=== PATIENT | male | born 1960 | race Caucasian/White ===

== ENCOUNTER → 2024-02-04 | Outpatient (CLI) | payer OTHER ==
[2024-02-04 14:37] VITALS: BP 135/85; PULSE 84; RESP 16; TEMP 98.2
--- NOTE | 2024-02-04 15:10 | P.SLEEP ---
History of Present Illness DATE: 02/04/2024 CONSULTATION/NEW PATIENT EVALUATION HISTORY OF PRESENT ILLNESS/SLEEP-WAKE EVALUATION: 63-year-old gentleman had b een evaluated in the sleep center for possible obstructive sleep apnea hypopnea syndrome. SLEEP SCHEDULE: Usually sleep schedule from 9:30 PM to 6 AM on weekdays and to 7:30 AM on weekend. FALLING ASLEEP: No problems with falling asleep. DURING SLEEP: Patient has loud snoring and witnessed episodes of stop breathing during the sleep. Patient wakes up from sleep 4 times with nocturia. No histo ry of hypnogogical hallucinations, sleep paralysis, or cataplexy. DURING THE DAY/WAKE STATE: In the morning patient wake up tired, has difficulties to pay attention, falling asleep during the day.. [place] sleepiness scale is 8. Patient may take nap at 4:30 PM. PAST MEDICAL HISTORY: Esophageal structure. PAST SURGICAL HISTORY: Balloon procedure for esophageal structure. MEDICATIONS: Omeprazole. SOCIAL HISTORY: Please see belowl. FAMILY HISTORY: Please see below. REVIEW OF SYSTEMS: Snoring, multiple awakenings from sleep. No fevers. No double vision. No recent chest pain. No shortness of breath. No abdominal pain. No bleeding episodes. No blood in urine. No seizure episodes. PHYSICAL EXAMINATION: GENERAL: A pleasant patient without any distress. VITAL SIGNS: Please see below, weight 225 pounds, BMI 32.2. HEENT: PERRLA, EOMI. Evaluation of oropharynx showed tongue protrudes midline, low position of soft palate Mallampati 34. NECK: Supple. No JVD. Thyroid is not palpable. 17 inches in circumference. LUNGS: Clear to percussion and to auscultation. Good air exchange. No wheezing or rhonchi. HEART: S1, S2 regular. No murmurs, gallops or rubs. ABDOMEN: Soft and nontender. Bowel sounds are present. No organomegaly appreciated. EXTREMITIES: No clubbing or cyanosis. CLERICAL AIDE TEACHER: Awake, alert, and oriented x3. Cranial nerves 2 to 7 intact. There is no fasciculation or atrophy noted. No focal deficits observed. ASSESSMENT: 1. Loud snoring, witnessed episodes of stop breathing during the sleep, multiple awakenings from sleep, extremely low position of soft palate Mallampati 4, wide neck 17 inches in circumference. Obstructive sleep apnea hypopnea syndrome. 2. Mild obesity, BMI 32.2. 3. Acid reflux. 4. History of esophageal structure, status post balloon procedure. PLAN: 1. Polysomnography for evaluation of patient's breathing during sleep. 2. Following plan after reading sleep study 3. Preferable position during sleep on the side. 4. No driving if patient feels any sleepiness. Patient is aware of civil and criminal liability for unsafe driving. 5. Sleep hygiene with regular sleep time for at least 7.5-8 hours. 6. Watching weight. Thank you very much for referring this patient for consultation. Sincerely, Tacos Duran MD, PhD, FAASM. Diplomat of [place] [employer], Sleep Medicine Board by [place] [employer] [place] [employer] Systems Coordinator of [facility] [place] Past Medical History Additional Past Medical History / Comment(s): ESOPHAGEAL STRICTURE History of Any Multi-Drug Resistant Organisms: None Reported Additional Past Surgical History / Comment(s): BALLOONED ESOPHAGUS Past Anesthesia/Blood Transfusion Reactions: No Reported Reaction Past Psychological History: No Psychological Hx Reported Smoking Status: Never smoker Past Alcohol Use History: None Reported Past Drug Use History: None Reported Medications and Allergies Home Medications Medication Instructions Recorded Confirmed Type Omeprazole 20 mg PO DAILY 02/04/24 02/04/24 History Physical Exam Vitals: Vital Signs Temp Pulse Resp BP Pulse Ox 02/04/24 14:33 98.2 F 84 16 135/85 96 Intake and Output 02/04/24 02/04/24 02/04/24 06:59 14:59 22:59 Other: Weight 102.058 kg Sleep Note - Sleep Data ESS Total: 8 - Sleep Note Sleep Note: Temperature: 98.2 F Pulse Rate: 84 Respiratory Rate: 16 Blood Pressure: 135/85 SpO2: 96 Height: 5 ft 10 in Weight: 102.058 kg BMI: Neck Circumference: 17
== END ==
LOC: 3 N SLEEP 13:50
PROVIDERS: ATTEND Internal Medicine
DX: G47.33 Obstructive sleep apnea (adult) (pediatric) (principal); E66.9 Obesity, unspecified; K21.9 Gastro-esophageal reflux disease without esophagitis; Z68.32 Body mass index [BMI] 32.0-32.9, adult; Z87.09 Personal history of other diseases of the respiratory system
CPT/HCPCS: 99202

== ENCOUNTER 2024-03-09 20:06 | Outpatient (CLI) | payer OTHER ==
--- NOTE | 2024-04-01 15:54 | SLS ---
SLEEP STUDY PROCEDURE: Polysomnogram. DESCRIPTION OF PROCEDURE: The standard montage for clinical polysomnography included an electroencephalogram, electroculogram, lead II cardiography have been provided. The respiratory battery consisted of measurements of nasal/buccal airflow, pressure transducer measurements from nose, thoracic, and abdominal effort. Video monitoring has been done to check for any parasomnia events. Nocturnal oxyhemoglobin saturation was obtained by finger oximetry. RESULTS: During diagnostic sleep study sleep efficiency was decreased to 82.7%. Latency to sleep onset was normal 12.5 minutes. Sleep architecture showed slight increasing stage N1 to 10.1%, absence of delta sleep, 0% and normal amount of REM sleep 21.3%. Heart rate in the range between 68 and 81, every 74. EMG showed 2.3 periodic limb movements per hour. Respiratory channel showed 182 obstructive apneas, 0 mixed apneas, 3 central apneas and 46 hypopneas, with total apnea-hypopnea index 40.4 with oxygen desaturation to 81%. IMPRESSION: 1. Severe obstructive sleep apnea-hypopnea syndrome. 2. No significant periodic limb movements have been documented. PLAN: 1. CPAP titration for correction of respiratory abnormalities during sleep. 2. Watching and losing weight. 3. Sleep hygiene with regular time in bed for at least 8 hours. 4. No driving if feeling sleepiness. Thank you very much for allowing me to participate in the management of your patient. Sincerely, Tacos Duran MD, PhD, FAASM Diplomat of [place] [employer] Sleep Medicine Board of [place] [employer] Office Support Associate of [facility] [place]. MMODL / IJN: [id number] / JAS
== END 2024-03-10 05:17 | disposition home or self-care (01) ==
LOC: 3 N SLEEP 20:06
PROVIDERS: ATTEND Internal Medicine
DX: G47.33 Obstructive sleep apnea (adult) (pediatric) (principal)
CPT/HCPCS: 95810

== ENCOUNTER 2024-04-03 19:50 | Outpatient (CLI) | payer OTHER ==
--- NOTE | 2024-04-06 16:20 | P.PCN ---
Description of Procedure: CLINICAL: Titration with positive air pressure has been done for correction of respiratory abnormalities during sleep. DESCRIPTION OF PROCEDURE: The standard montage for clinical polysomnography included the electroencephalogram, the electrocardiogram, the mentalis surface electromyography and Lead II cardiography. The respiratory battery consisted of measurements of nasal /buccal air flow, pressure transducer measurements from the nose, thoracic and /or abdominal effort and intercostal surface electromyography. Video monitoring has been done to check for any parasomnia events. Nocturnal oxyhemoglobin saturations were obtained by finger oximetry. Step-mae titration with positive airway pressure was utilized to control respiratory events. Raw data of sleep recording has been reviewed and is adequate. RESULTS: Sleep efficiency was significantly decreased to 75.9%. Latency to sleep onset was prolonged to 46.5 minutes.]. Sleep architecture showed stage N1 was normal 7.9%, Delta sleep was extremely short 0.1%, REM sleep was increased to 32.3%. Heart rate was minimum 58 BPM, maximum 91 BPM, average 68 BPM by computer c alculation. EMG showed 19.5 periodic limb movements per hour. PAP titration have been done with CPAP up to the pressure 11 cm H2O. The best results were at the pressure 11 cm H2O. Apnea hypopnea index reduced to 1.6. IMPRESSION: 1. Obstructive sleep apnea hypopnea syndrome on controle with PAP treatment. 2. Periodic limb movements have been documented. Please see other impressions from consultation. PLAN: 1. The patient will have treatment with positive air pressure equipment with the level of pressure AutoPap 5-11 cm H2O and should use it every night for the whole night. 2. Watching and losing weight. 3. Sleep hygiene with regular time in bed for at least 8 hours. 4. No driving if feeling any sleepiness. 5. I will see the patient for follow up visit to explain the results of the test, recommendations, check compliance with treatment and make any necessary adjustment related to mask fitting, pressure and humidification. 6. Please check iron profile including ferritin level. Low level of iron may increase risk for periodic limb movements Thank you very much for allowing me to participate in the management of your patient. Sincerely, Tacos Duran MD, PhD, FAASM Diplomat of [employer] [employer] Sleep Medicine Board of [place] [employer] Assurance Engineer of [facility] [place] cc: Lc Ball MD
== END 2024-04-04 05:55 | disposition home or self-care (01) ==
LOC: 3 N SLEEP 19:50
PROVIDERS: ATTEND Internal Medicine
CPT/HCPCS: 95811

== ENCOUNTER 2025-02-11 19:58 | Inpatient (IN) | payer OTHER ==
--- NOTE | 2025-02-11 20:25 | ED ---
Fever HPI - General Chief Complaint: Upper Respiratory Infection Stated Complaint: Fever, Bodyaches Time Seen by Provider: 02/11/25 20:07 Source: patient, RN notes reviewed, old records reviewed Mode of arrival: ambulatory Limitations: no limitations - History of Present Illness Initial Comments: This is a 64-year-old male to the ER for evaluation patient is presenting with concern for worsening infection 5 to 6 days of antibiotics and fever control and 5 to 6 days of fever shortness of breath cough congestion still feeling unwell. Patient presents to the ER after revisit to urgent care urged him to come to the hospital for worsening pneumonia and failure of outpatient treatment. 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 Complaint: fever, malaise, other (Cough congestion) -: days(s) Temperature Source: subjective, oral Context: sick contacts, recent antibiotic use Associated Symptoms: myalgias, nasal congestion, cough, shortness of breath, nausea Treatments Prior to Arrival: Acetaminophen, Ibuprofen - Related Data Home Medications Medication Instructions Recorded Confirmed Acetaminophen-Codeine 300-30mg 1 - 2 tab PO Q4-6H PRN 02/12/25 02/12/25 [Tylenol w/codeine #3] Cholecalciferol (Vitamin D3) 50 mcg PO DAILY 02/12/25 02/12/25 [Vitamin D3 (50 Mcg = 2000 Iu) Chew Tab] Omeprazole 40 mg PO DAILY 02/12/25 02/12/25 Previous Rx's Medication Instructions Recorded cefuroxime axetiL [Ceftin] 500 mg PO BID 5 Days #20 tab 02/13/25 Allergies Allergy/AdvReac Type Severity Reaction Status Date / Time amoxicillin AdvReac Vomiting Verified 02/12/25 10:03 Review of Systems ROS Statement: Those systems with pertinent positive or pertinent negative responses have been documented in the HPI. ROS Other: All systems not noted in ROS Statement are negative. Past Medical History Past Medical History: Sleep Apnea/CPAP/BIPAP Additional Past Medical History / Comment(s): ESOPHAGEAL STRICTURE History of Any Multi-Drug Resistant Organisms: None Reported Additional Past Surgical History / Comment(s): BALLOONED ESOPHAGUS Past Anesthesia/Blood Transfusion Reactions: No Reported Reaction Past Psychological History: No Psychological Hx Reported Smoking Status: Never smoker Past Alcohol Use History: None Reported Past Drug Use History: None Reported General Exam Limitations: no limitations General appearance: alert, in no apparent distress Head exam: Present: atraumatic, normocephalic, normal inspection Eye exam: Present: normal appearance, PERRL, EOMI. Absent: scleral icterus, conjunctival injection, periorbital swelling ENT exam: Present: normal exam, mucous membranes moist Neck exam: Present: normal inspection. Absent: tenderness, meningismus, lymphadenopathy Respiratory exam: Present: normal lung sounds bilaterally. Absent: respiratory distress, wheezes, rales, rhonchi, stridor Cardiovascular Exam: Present: regular rate, normal rhythm, normal heart sounds. Absent: systolic murmur, diastolic murmur, rubs, gallop, clicks GI/Abdominal exam: Present: soft, normal bowel sounds. Absent: distended, tenderness, guarding, rebound, rigid Extremities exam: Present: normal inspection, full ROM, normal capillary refill. Absent: tenderness, pedal edema, joint swelling, calf tenderness Back exam: Present: normal inspection Neurological exam: Present: alert, oriented X3, CN II-XII intact Psychiatric exam: Present: normal affect, normal mood Skin exam: Present: warm, dry, intact, normal color. Absent: rash Course Vital Signs 02/11/25 02/11/25 20:01 23:51 Temperature 99 F 97.6 F Pulse Rate 89 68 Respiratory 18 20 Rate Blood Pressure 145/85 120/83 O2 Sat by Pulse 95 96 Oximetry - Reevaluation(s) Reevaluation #1: 02/11/25 21:37 Medical records reviewed Reevaluation #2: 02/11/25 23:04 Patient's symptoms are improving here in the ER Reevaluation #3: 02/11/25 23:04 Patient informed of results questions answered Reevaluation #4: Was pt. sent in by a medical professional or institution (, PA, TABLEAU LEAD, urgent care, hospital, or custodial...) When possible be specific @ -no Did you speak to anyone other than the patient for history (EMS, parent, family, police, friend...)? What history was obtained from this source @ -no Did you review nursing and triage notes (agree or disagree)? Why? @ -agree Are old charts reviewed (outside hosp., previous admission, EMS record, old EKG, old radiological studies, urgent care reports/EKG's, custodial records)? Report findings @ -yes Differential Diagnosis (chest pain, altered mental status, abdominal pain women, abdominal pain men, vaginal bleeding, weakness, fever, dyspnea, syncope, headache, dizziness, GI bleed, back pain, seizure, CVA, palpatations, mental health, musculoskeletal)? @ -prior EKG interpreted by me (3pts min.). @ -yes X-rays interpreted by me (1pt min.). @ -yes positive for right upper lobe pneumonia CT interpreted by me (1pt min.). @ -Yes positive for pneumonia U/S interpreted by me (1pt. min.). @ -no What testing was considered but not performed or refused? (CT, X-rays, U/S, labs)? Why? @ -none What meds were considered but not given or refused? Why? @ -none Did you discuss the management of the patient with other professionals (professionals i.e. , PA, TABLEAU LEAD, lab, RT, psych nurse, social work case manager, gasoline locomotive crane operator, teacher, loan service officer, family independence case manager)? Give summary @ -no Was smoking cessation discussed for >3mins.? @ -no Was critical care preformed (if so, how long)? @ -no Were there social determinants of health that impacted care today? How? (Homelessness, low income, unemployed, alcoholism, drug addiction, transportation, low edu. Level, literacy, decrease access to med. care, longterm, rehab)? @ -none Was there de-escalation of care discussed even if they declined (Discuss DNR or withdrawal of care, Hospice)? DNR status @ -no What co-morbidities impacted this encounter? (DM, HTN, Smoking, COPD, CAD, Cancer, CVA, ARF, Chemo, Hep., AIDS, mental health diagnosis, sleep apnea, morbid obesity)? @ -none Was patient admitted / discharged? Hospital course, mention meds given and route, prescriptions, significant lab abnormalities, going to OR and other pe rtinent info. @ - 64 male to the ED co sob, fever with pneumonia, patient will be admitted for IV antibiotics for outpatient pneumonia failed outpatient treatment Admitted Undiagnosed new problem with uncertain prognosis? @ -no Drug Therapy requiring intensive monitoring for toxicity (Heparin, Nitro, Insulin, Cardizem)? @ -no Were any procedures done? @ -no Diagnosis/symptom? @ -Significant acute pneumonia Acute, or Chronic, or Acute on Chronic? @ -Acute Uncomplicated (without systemic symptoms) or Complicated (systemic symptoms)? @ -Complicated Side effects of treatment? @ -no Exacerbation, Progression, or Severe Exacerbation? @ -exacerbation Poses a threat to life or bodily function? How? (Chest pain, [place], PR, pneumonia, PE, COPD, DKA, ARF, appy, cholecystitis, CVA, Diverticulitis, Homicidal, Suicidal, threat to staff... and all critical care pts) @ -yes with respiratory pneumonia Reevaluation #5: Differential Fever: Pneumonia, viral URI, endocarditis, myocarditis, pericarditis, otitis, sinusitis, peritonsillar Abscess, retropharyngeal Abscess, epiglottitis, peritonitis, appendicitis, Jonna cystitis, diverticulitis, hepatitis, colitis, UTI, PID, TOA, pyelonephritis, prostatitis, epididymitis, meningitis, encephalitis, pulmonary embolism, CVA, thyroid storm, pancreatitis, adrenal crisis, cavernous sinus thrombosis, this is not meant to be an all-inclusive list. - Consultations Consultation #1: Spoke with [facility] who agrees to admit this patient Medical Decision Making - Medical Decision Making 64 male to the ED co sob, fever with pneumonia, patient will be admitted for IV antibiotics for outpatient pneumonia failed outpatient treatment - Lab Data Result diagrams: 02/13/25 05:48 02/13/25 05:48 Lab Results 02/11/25 02/11/25 02/11/25 Range/Units 20:52 20:52 20:52 WBC 10.44 H (4.50-10.00) 10*3/uL RBC 4.91 (4.40-5.60) 10*6/uL Hgb 15.5 (13.0-17.0) g/dL Hct 43.4 (39.6-50.0) % MCV 88.4 (80.0-97.0) fL MCH 31.6 (27.0-32.0) pg MCHC 35.7 (32.0-37.0) g/dL Plt Count 245 (140-440) 10*3/uL MPV 9.3 L (9.5-12.2) fL Immature Gran % (Auto) 0.3 % Neutrophils % 82.5 % Lymphocytes % 7.0 % Monocytes % 9.6 % Eosinophils % 0.3 % Basophils % 0.3 % Immature Gran # 0.03 (0.00-0.04) 10*3/uL Neutrophils # 8.62 H (1.80-7.70) 10*3/uL Lymphocytes # 0.73 L (0.90-5.00) 10*3/uL Monocytes # 1.00 (0.20-1.00) 10*3/uL Eosinophils # 0.03 L (0.04-0.35) 10*3/uL Basophils # 0.03 (0.00-0.10) 10*3/uL Sodium 129 L (137-145) mmol/L Potassium 4.2 (3.5-5.1) mmol/L Chloride 96 L (98-107) mmol/L Carbon Dioxide 21 L (22-30) mmol/L Anion Gap 12 mmol/L BUN 20 (9-20) mg/dL Creatinine 0.83 (0.66-1.25) mg/dL Est GFR (CKD-EPI)AfAm >90 (>60 ml/min/1.73 sqM) Est GFR (CKD-EPI)NonAf >90 (>60 ml/min/1.73 sqM) Glucose 113 H (74-99) mg/dL Calcium 8.7 (8.4-10.2) mg/dL Phosphorus (2.5-4.5) mg/dL Magnesium (1.6-2.3) mg/dL Total Bilirubin 1.4 H (0.2-1.3) mg/dL AST 46 (17-59) U/L ALT 30 (4-49) U/L Alkaline Phosphatase 115 (38-126) U/L Total Protein 6.2 L (6.3-8.2) g/dL Albumin 3.4 L (3.5-5.0) g/dL Urine Color Urine Appearance (Clear) Urine pH (5.0-8.0) Ur Specific Rhodelia (1.001-1.035) Urine Protein (Negative) Urine Glucose (UA) (Negative) Urine Ketones (Negative) Urine Blood (Negative) Urine Nitrite (Negative) Urine Bilirubin (Negative) Urine Urobilinogen (<2.0) mg/dL Ur Leukocyte Esterase (Negative) Urine RBC (0-5) /hpf Urine WBC (0-5) /hpf Ur Squamous Epith Cells (0-4) /hpf Urine Bacteria (None) /hpf Urine Mucus (None) /hpf Urine Yeast (Budding) (None) /hpf Influenza Type A (PCR) Not Detected (Not Detectd) Influenza Type B (PCR) Not Detected (Not Detectd) Urine Legionella Ag (Negative) RSV (PCR) Not Detected (Not Detectd) SARS-CoV-2 (PCR) Not Detected (Not Detectd) 02/11/25 02/11/25 02/11/25 Range/Units 21:27 21:27 21:28 WBC (4.50-10.00) 10*3/uL RBC (4.40-5.60) 10*6/uL Hgb (13.0-17.0) g/dL Hct (39.6-50.0) % MCV (80.0-97.0) fL MCH (27.0-32.0) pg MCHC (32.0-37.0) g/dL Plt Count (140-440) 10*3/uL MPV (9.5-12.2) fL Immature Gran % (Auto) % Neutrophils % % Lymphocytes % % Monocytes % % Eosinophils % % Basophils % % Immature Gran # (0.00-0.04) 10*3/uL Neutrophils # (1.80-7.70) 10*3/uL Lymphocytes # (0.90-5.00) 10*3/uL Monocytes # (0.20-1.00) 10*3/uL Eosinophils # (0.04-0.35) 10*3/uL Basophils # (0.00-0.10) 10*3/uL Sodium (137-145) mmol/L Potassium (3.5-5.1) mmol/L Chloride (98-107) mmol/L Carbon Dioxide (22-30) mmol/L Anion Gap mmol/L BUN (9-20) mg/dL Creatinine (0.66-1.25) mg/dL Est GFR (CKD-EPI)AfAm (>60 ml/min/1.73 sqM) Est GFR (CKD-EPI)NonAf (>60 ml/min/1.73 sqM) Glucose (74-99) mg/dL Calcium (8.4-10.2) mg/dL Phosphorus 3.2 (2.5-4.5) mg/dL Magnesium 2.0 (1.6-2.3) mg/dL Total Bilirubin (0.2-1.3) mg/dL AST (17-59) U/L ALT (4-49) U/L Alkaline Phosphatase (38-126) U/L Total Protein (6.3-8.2) g/dL Albumin (3.5-5.0) g/dL Urine Color Yellow Urine Appearance Clear (Clear) Urine pH 6.0 (5.0-8.0) Ur Specific Rhodelia 1.026 (1.001-1.035) Urine Protein 1+ H (Negative) Urine Glucose (UA) Negative (Negative) Urine Ketones 1+ H (Negative) Urine Blood Small H (Negative) Urine Nitrite Negative (Negative) Urine Bilirubin Negative (Negative) Urine Urobilinogen 6.0 (<2.0) mg/dL Ur Leukocyte Esterase Negative (Negative) Urine RBC 6 H (0-5) /hpf Urine WBC 1 (0-5) /hpf Ur Squamous Epith Cells <1 (0-4) /hpf Urine Bacteria Rare H (None) /hpf Urine Mucus Rare H (None) /hpf Urine Yeast (Budding) Rare H (None) /hpf Influenza Type A (PCR) (Not Detectd) Influenza Type B (PCR) (Not Detectd) Urine Legionella Ag Negative (Negative) RSV (PCR) (Not Detectd) SARS-CoV-2 (PCR) (Not Detectd) - Radiology Data Radiology results: report reviewed (Chest x-ray showing findings for pneumonia, CTA chest significant for lobar pneumonia), image reviewed Critical Care Time Critical Care Time: Yes Total Critical Care Time: 31 Disposition Clinical Impression: Acute upper respiratory infection, Fever, Pneumonia, Failure of outpatient treatment Disposition: ADMITTED IP TO THIS [facility] Condition: Good Is patient prescribed a controlled substance at d/c from ED?: No
[2025-02-11] MEDS: SODIUM CHLORIDE 0.9% 1,000 ML IV ONE (21:01)
[2025-02-11 21:02] LABS: Basophils # (A) 0.03 10*3/uL (0.00-0.10); Basophils % (A) 0.3 %; Eosinophils # (A) 0.03 10*3/uL (0.04-0.35); Eosinophils % (A) 0.3 %; HCT 43.4 % (39.6-50.0); HGB 15.5 g/dL (13.0-17.0); Lymphocytes # (A) 0.73 10*3/uL (0.90-5.00); Lymphocytes % (A) 7.0 %; MCH 31.6 pg (27.0-32.0); MCHC 35.7 g/dL (32.0-37.0); MCV 88.4 fL (80.0-97.0); Monocytes # (A) 1.00 10*3/uL (0.20-1.00); Monocytes % (A) 9.6 %; Neutrophils # (A) 8.62 10*3/uL (1.80-7.70); Neutrophils % (A) 82.5 %; Platelet Count 245 10*3/uL (140-440); RBC 4.91 10*6/uL (4.40-5.60); RDW 13.1 % (11.5-14.5); WBC 10.44 10*3/uL (4.50-10.00)
[2025-02-11] MEDS: ACETAMINOPHEN TAB 500 MG TAB PO STA (21:03)
[2025-02-11] MEDS: IBUPROFEN 600 MG TAB PO STA (21:05)
[2025-02-11] MEDS: KETOROLAC 15 MG/ML 1 ML VIAL IVP STA (21:06)
[2025-02-11 21:13] LABS: ALT 30 U/L (4-49); AST 46 U/L (17-59); African American GFR (CKD) >90 (>60 ml/min/1.73 sqM); Albumin 3.4 g/dL (3.5-5.0); Alkaline Phosphatase 115 U/L (38-126); Anion Gap 12 mmol/L; Blood Urea Nitrogen 20 mg/dL (9-20); Calcium 8.7 mg/dL (8.4-10.2); Carbon Dioxide 21 mmol/L (22-30); Chloride 96 mmol/L (98-107); Glucose 113 mg/dL (74-99); Non-African American GFR(CKD) >90 (>60 ml/min/1.73 sqM); Potassium 4.2 mmol/L (3.5-5.1); Sodium 129 mmol/L (137-145); Total Protein 6.2 g/dL (6.3-8.2)
--- NOTE | 2025-02-11 21:21 | XR ---
EXAMINATION TYPE: XR chest 2V DATE OF EXAM: 02/11/2025 8:50 PM CLINICAL INDICATION:Male, 64 years old with history of sob; [facility] COMPARISON: None TECHNIQUE: XR chest 2V Frontal view of the chest. FINDINGS: Lungs/Pleura: Large confluent appearing opacity is seen in the right upper and mid lung zones. There is no evidence of pneumothorax. Pulmonary vascularity: Unremarkable. Heart/mediastinum: Cardiomediastinal silhouette is unremarkable. Musculoskeletal: No acute osseous pathology. IMPRESSION: Lobar consolidative opacification noted in the right upper/midlung. Findings may relate to pneumonia versus other process. Correlate with clinical evaluation and history. [facility], , 02/11/2025 9:19 PM
[2025-02-11 21:41] LABS: Magnesium 2.0 mg/dL (1.6-2.3)
[2025-02-11] MEDS: LEVOFLOXACIN 750MG-D5W PMX 750 MG in DEXTROSE/WATER 1 150ML.BAG IVPB STA (21:44)
[2025-02-11] MEDS: LORazepam 1 MG/0.5 ML VIAL IV STA (21:46)
[2025-02-11 22:06] LABS: Bacteria,Urine Rare /hpf; Bilirubin,Urine Negative (Negative); Blood,Urine Small (Negative); Budding Yeast,Urine Rare /hpf; Color,Urine Yellow; Glucose,Urine (UA) Negative (Negative); Ketones,Urine 1+ (Negative); Leukocyte Esterase,Urine Negative (Negative); Mucus,Urine Rare /hpf; Nitrite,Urine Negative (Negative); PH, Urine 6.0 (5.0-8.0); Protein,Urine 1+ (Negative); RBC,Urine 6 /hpf (0-5); Specific Gravity,Urine 1.026 (1.001-1.035); Squamous Epithelial Cell,Urine <1 /hpf (0-4); Urobilinogen,Urine 6.0 mg/dL (<2.0); WBC,Urine 1 /hpf (0-5)
[2025-02-11 22:17] LABS: RSV Not Detected (Not Detectd)
--- NOTE | 2025-02-11 22:59 | CT ---
EXAM: CT Angiography Chest With Intravenous Contrast CLINICAL HISTORY: ITS.REASON CT Reason: sob TECHNIQUE: Axial computed tomographic angiography images of the chest with intravenous contrast. CTDI is 10.2 mGy and DLP is 470.6 mGy-cm. This CT exam was performed using one or more of the following dose reduction techniques: automated exposure control, adjustment of the mA and/or kV according to patient size, and/or use of iterative reconstruction technique. MIP reconstructed images were created and reviewed. COMPARISON: No relevant prior studies available. FINDINGS: Pulmonary arteries: Unremarkable. No pulmonary embolism. Aorta: Aneurysmal ascending thoracic aorta measuring up to 4.8 cm. No dissection. Lungs: Consolidation in the right upper lobe consistent with pneumonia. Pleural space: Small right pleural effusion. Heart: Unremarkable. Bones/joints: No acute fracture. Soft tissues: Unremarkable. Lymph nodes: Unremarkable. IMPRESSION: 1. Consolidation in the right upper lobe consistent with pneumonia. 2. Aneurysmal ascending thoracic aorta measuring up to 4.8 cm. No dissection. 3. Small right pleural effusion.
[2025-02-11] MEDS ORDERED: PNEUMONIA PROTOCOL UTILIZED 1 EACH MISC PO PRN (23:01)
[2025-02-11] MEDS ORDERED: IPRATROPIUM-ALBUTEROL 3 ML NEB INHALATION PRN (23:01)
[2025-02-11] MEDS: LEVOFLOXACIN 750MG-D5W PMX 750 MG in DEXTROSE/WATER 1 150ML.BAG IVPB SCH (23:47)
[2025-02-12] MEDS: SODIUM CHLORIDE 0.9% 1,000 ML IV ONE (00:31)
[2025-02-12] MEDS: SODIUM CHLORIDE 0.9% 1,000 ML IV SCH (00:32)
[2025-02-12] MEDS: ACETAMINOPHEN TAB 325 MG TAB PO PRN (09:03)
--- NOTE | 2025-02-12 09:26 | XR ---
EXAMINATION TYPE: XR chest 2V DATE OF EXAM: 02/12/2025 9:17 AM COMPARISON: Chest radiographs from CLINICAL INDICATION: Male, 64 years old with history of pneumonia; [facility] TECHNIQUE: XR chest 2V Frontal and lateral views of the chest. FINDINGS: Lungs/Pleura: Right midlung consolidation is unchanged. There is no evidence of pleural effusion, lef t focal consolidation, or pneumothorax. Pulmonary vascularity: Unremarkable. Heart/mediastinum: Cardiomediastinal silhouette is unremarkable. Musculoskeletal: No acute osseous pathology. Other findings: None Lines/Tubes: IMPRESSION: Right midlung consolidation suggestive of pneumonia, similar to prior. [facility], , 02/12/2025 9:24 AM
--- NOTE | 2025-02-12 10:05 | P.HPIM ---
History of Present Illness 64-year-old male came in with complaints of fever generalized bodyaches malaise. Patient works in a conditioning units and concerned about legionnaires disease. Patient is found to have a dense infiltrate on the chest x-ray. Patient had a CAT scan as well which showed lobar pneumonia in the right midlung. Patient is complaining of cough congestion. Patient denies smoking history. REVIEW OF SYSTEMS: All other systems are negative except those mentioned in the HPI PHYSICAL EXAMINATION: GENERAL: The patient is alert and oriented x3, not in any acute distress. Well developed, well nourished. HEENT: Pupils are round and equally reacting to light. EOMI. No scleral icterus. No conjunctival pallor. Normocephalic, atraumatic. No pharyngeal erythema. No thyromegaly. CARDIOVASCULAR: S1 and S2 present. No murmurs, rubs, or gallops. PULMONARY: Chest is clear to auscultation, no wheezing or crackles. Patient does have bronchophony ABDOMEN: Soft, nontender, nondistended, normoactive bowel sounds. No palpable organomegaly. MUSCULOSKELETAL: No joint swelling or deformity. EXTREMITIES: No cyanosis, clubbing, or pedal edema. NEUROLOGICAL: Gross neurological examination did not reveal any focal deficits. SKIN: No rashes. Assessment and plan -Sepsis secondary to lobar pneumonia possibly pneumococcal pneumonia: Will rule out Legionella pneumonia, a urinary Legionella antigen was ordered. Patient's antibiotics will be switched from levofloxacin to Rocephin and azithromycin. Blood cultures were obtained - Gastroesophageal reflux disease for which patient is on proton pulmonary diverter which will be resumed - Hyponatremia hypovolemic hyponatremia secondary to sepsis patient will be continued on IV fluids - Asymptomatic bacteriuria DVT prophylaxis: Lovenox Past Medical History Past Medical History: Hyperlipidemia, Sleep Apnea/CPAP/BIPAP Additional Past Medical History / Comment(s): ESOPHAGEAL STRICTURE, OSAS on CPAP History of Any Multi-Drug Resistant Organisms: None Reported Additional Past Surgical History / Comment(s): BALLOONED ESOPHAGUS Past Anesthesia/Blood Transfusion Reactions: No Reported Reaction Past Psychological History: No Psychological Hx Reported Smoking Status: Never smoker Past Alcohol Use History: None Reported Past Drug Use History: None Reported Medications and Allergies Home Medications Medication Instructions Recorded Confirmed Type Acetaminophen-Codeine 300-30mg 1 - 2 tab PO Q4-6H PRN 02/12/25 02/12/25 History [Tylenol w/codeine #3] Doxycycline Hyclate 100 mg PO BID 02/12/25 02/12/25 History Omeprazole 40 mg PO DAILY 02/12/25 02/12/25 History Allergies Allergy/AdvReac Type Severity Reaction Status Date / Time amoxicillin AdvReac Vomiting Verified 02/12/25 10:03 Physical Exam Vitals: Vital Signs Temp Pulse Pulse Resp BP BP Pulse Ox 02/12/25 07:02 97.7 F 68 18 109/71 94 L 02/12/25 01:28 97.6 F 65 16 110/73 94 L 02/11/25 23:51 97.6 F 68 20 120/83 96 02/11/25 20:01 99 F 89 18 145/85 95 Intake and Output 02/11/25 02/12/25 02/12/25 22:59 06:59 14:59 Other: Weight 99.79 kg 99.79 kg Results CBC & Chem 7: 02/11/25 20:52 02/11/25 20:52 Labs: Abnormal Lab Results - Last 24 Hours (Table) 02/11/25 02/11/25 02/11/25 Range/Units 20:52 20:52 21:27 WBC 10.44 H (4.50-10.00) 10*3/uL MPV 9.3 L (9.5-12.2) fL Neutrophils # 8.62 H (1.80-7.70) 10*3/uL Lymphocytes # 0.73 L (0.90-5.00) 10*3/uL Eosinophils # 0.03 L (0.04-0.35) 10*3/uL Sodium 129 L (137-145) mmol/L Chloride 96 L (98-107) mmol/L Carbon Dioxide 21 L (22-30) mmol/L Glucose 113 H (74-99) mg/dL Total Bilirubin 1.4 H (0.2-1.3) mg/dL Total Protein 6.2 L (6.3-8.2) g/dL Albumin 3.4 L (3.5-5.0) g/dL Urine Protein 1+ H (Negative) Urine Ketones 1+ H (Negative) Urine Blood Small H (Negative) Urine RBC 6 H (0-5) /hpf Urine Bacteria Rare H (None) /hpf Urine Mucus Rare H (None) /hpf Urine Yeast (Budding) Rare H (None) /hpf
[2025-02-12] MEDS: FAMOTIDINE 20 MG TAB PO SCH (10:30)
[2025-02-12] MEDS: AZITHROMYCIN 500 MG TAB PO SCH (10:30)
[2025-02-12] MEDS: BENZONATATE 100 MG CAP PO PRN (22:39)
[2025-02-13 03:05] VITALS: RESP 18
[2025-02-13 08:23] LABS: HCT 44.3 % (39.6-50.0); HGB 14.9 g/dL (13.0-17.0); MCH 30.3 pg (27.0-32.0); MCHC 33.6 g/dL (32.0-37.0); MCV 90.2 FL (80.0-97.0); NRBC Per 100 WBC 0 X 10*3/uL (0.00-0.01); Platelet Count 302 X 10*3/uL (140-440); RBC 4.91 X 10*6/uL (4.40-5.60); RDW 13.2 % (11.5-14.5); WBC 7.57 X 10*3/uL (4.50-10.00)
[2025-02-13] MEDS: ENOXAPARIN 40 MG/0.4 ML SYRINGE SQ SCH (08:27)
[2025-02-13 08:36] LABS: Anion Gap 11.00 mmol/L (4.00-12.00); BUN/Creat Ratio 19.29 Ratio (12.00-20.00); Blood Urea Nitrogen 13.5 mg/dL (9.0-27.0); Calcium 8.2 mg/dL (8.7-10.3); Carbon Dioxide 24.0 mmol/L (21.6-31.8); Chloride 100 mmol/L (96-109); Glucose 111 mg/dL (70-110); Magnesium 2.0 mg/dL (1.5-2.4); Potassium 3.9 mmol/L (3.5-5.5); Sodium 135 mmol/L (135-145)
[2025-02-13 09:09] VITALS: BP 120/72; PULSE 77; TEMP 97.9
--- NOTE | 2025-02-13 13:46 | P.DS ---
Providers Date of admission: 02/11/25 23:01 Attending physician: Amina Branham Primary care physician: [facility] Course: Discharge Diagnosis: Right lobar pneumonia 64-year-old male with a past medical history of sleep apnea and esophageal stri cture, presented with complaints of fever, generalized body aches, malaise, shortness of breath and cough for the past 5-6 days. Previously placed on antibiotics at an urgent care, however reported no improvement in symptoms. Vital signs on arrival of 99 F temperature, HR 89, RR 18, blood pressure of 145/85 and SPO2 95 on room air. In ER, laboratory values indicate, WBC 10.44, sodium 129, glucose 113, creatinine 0.83. A chest x-ray reports lobar consolidative opacification noted in the right upper/midlung. Patient transferred to inpatient floor. During the course of hospital stay, patient was placed on IV ceftriaxone and p.o. azithromycin. CT angiography chest was done, indicating consolidation in the right upper lobe consistent with pneumonia. Aneurysmal ascending thoracic aorta measuring up to 4.8 cm, no dissection and a small right pleural effusion. He is currently hemodynamically stable. Laboratory findings indicate WBC 7.57, sodium 135, glucose 111, creatinine 0.7. Patient will be returning home on 5 days of p.o. antibiotics. Patient advised to follow-up with his primary care physician to monitor symptoms and aneurysm size closely. Pt seen and examined at bedside: 02/13/2025 Vital signs reviewed and stable. Physical exam: GENERAL: The patient is alert and oriented x3, not in any acute distress. Well developed, well nourished. HEENT: Pupils are round and equally reacting to light. EOMI. No scleral icterus. No conjunctival pallor. Normocephalic, atraumatic. No pharyngeal erythema. No thyromegaly. CARDIOVASCULAR: S1 and S2 present. No murmurs, rubs, or gallops. PULMONARY: Chest is clear to auscultation, no wheezing or crackles. Patient does have bronchophony ABDOMEN: Soft, nontender, nondistended, normoactive bowel sounds. No palpable organomegaly. MUSCULOSKELETAL: No joint swelling or deformity. EXTREMITIES: No cyanosis, clubbing, or pedal edema. NEUROLOGICAL: Gross neurological examination did not reveal any focal deficits. SKIN: No rashes. A total of greater than 30 minutes were spent preparing this complex discarge summary. Patient was discharged on 02/13/2025. Patient Condition at Discharge: Fair Plan - Discharge Summary Discharge Rx Participant: No New Discharge Prescriptions: New cefuroxime axetiL [Ceftin] 500 mg PO BID 5 Days #20 tab Continue Acetaminophen-Codeine 300-30mg [Tylenol w/codeine #3] 1 - 2 tab PO Q4-6H PRN PRN Reason: Pain Omeprazole 40 mg PO DAILY Cholecalciferol (Vitamin D3) [Vitamin D3 (50 Mcg = 2000 Iu) Chew Tab] 50 mcg PO DAILY Discontinued Doxycycline Hyclate 100 mg PO BID Discharge Medication List Acetaminophen-Codeine 300-30mg [Tylenol w/codeine #3] 1 - 2 tab PO Q4-6H PRN 02/12/25 [History] Cholecalciferol (Vitamin D3) [Vitamin D3 (50 Mcg = 2000 Iu) Chew Tab] 50 mcg PO DAILY 02/12/25 [History] Omeprazole 40 mg PO DAILY 02/12/25 [History] cefuroxime axetiL [Ceftin] 500 mg PO BID 5 Days #20 tab 02/13/25 [Rx] Follow up Appointment(s)/Referral(s): Lc Ball [Primary Care Provider] - 1-2 days
== END 2025-02-13 14:09 | disposition home or self-care (01) | DRG 871 ==
LOC: EC 19:58 → 4SSUR 23:01
PROVIDERS: ADMIT Hospitalist; ATTEND Hospitalist
DX: A41.9 Sepsis, unspecified organism (principal); J18.1 Lobar pneumonia, unspecified organism; E87.1 Hypo-osmolality and hyponatremia; I71.21 Aneurysm of the ascending aorta, without rupture; E78.5 Hyperlipidemia, unspecified; E86.1 Hypovolemia; K21.9 Gastro-esophageal reflux disease without esophagitis; G47.33 Obstructive sleep apnea (adult) (pediatric); Z79.899 Other long term (current) drug therapy; Z88.0 Allergy status to penicillin
CPT/HCPCS: 36415; 71046; 71275; 80048; 80053; 81001; 83735; 84100; 85025; 85027; 87040; 87070; 87205; 87449; 87636; 96365; 96375; 99285